=== PATIENT | female | born 1990 | race Caucasian/White ===

== ENCOUNTER 2020-11-04 06:45 | Inpatient (IN) | payer BC ==
[2020-11-04] VITALS (39 sets, daily range): BP systolic 120–166; BP diastolic 58–102; PULSE 70–144; TEMP 97.8–98.4
[~2020-11-04] VITALS: Ht 167.6 cm; Wt 86.4 kg
--- NOTE | 2020-11-04 06:45 | NUR ---
Pt arrives on unit ambulatory wtih spouse. States contractions that began at 0400 that are rated 8/10 for pain. Changed into clean gown. EFM and toco applied. Admission assessment completed. SVE per this RN 4-5//-[address] with scant bloody show[address] Dr[address] Torres notified. See physician notification. Pt updated on POC. Oriented to room. IV started in LF. Labs drawn. LR infusing. Consents signed. Bed locked in low position. Call light within reach. Pt requests epidural. Tatum Busby CRNA notified.
[2020-11-04 07:20] LABS: BASO % 0.3 % (0.0-2.0); EOS # 0.1 (0.0-0.7); EOS % 0.7 % (0-4.0); GRAN # 8.4 (1.4-6.5); GRAN % 72.8 % (42.2-75.2); HEMATOCRIT 39.3 % (37.0-47.0); HEMOGLOBIN 12.9 g/dl (12.5-16.0); LYMPH # 2.2 (1.2-3.4); MEAN CELL VOLUME 93 fl (80.0-100.0); MEAN CORPUSCULAR HEMOGLOBIN 30 pg (27.0-31.0); MEAN CORPUSCULAR HGB CONC 33 g/dl (33.0-37.0); MEAN PLATELET VOLUME 10.2 fl (7.4-10.4); MONO # 0.7 (0.1-0.6); MONO % 6.3 % (1.7-9.3); PLATELET COUNT 253 K/mm3 (130-400); RED BLOOD COUNT 4.24 M/mm3 (4.10-5.30); REDCELL DISTRIBUTION WIDTH-CV 14.8 % (11.5-14.5)
--- NOTE | 2020-11-04 07:43 | NUR ---
Pt sitting upright for epidural placement. Difficulty tracing FHR due to maternal position. RN at bedside adjusting monitors. FHR audible.
[2020-11-04] MEDS ORDERED: SYNTHROID0.05 MG/TA PO (07:59)
--- NOTE | 2020-11-04 08:10 | NUR ---
0810-Recieved bedside shift report from KADI Kelley. Patient RL positioning trying to help epidural cover breakthrough pain in right abdomen. Patient attempts to press TEAMCENTER CONSULTANT and epidural is off, LIANNA Sol notified and to room.
--- NOTE | 2020-11-04 08:20 | NUR ---
Roles at bedside. Reviews FHR monitor and maternal BP. Discusses plan of care with patient. Instructed this RN to monitor next couple of BP since additional dosing of epdirual and see if they come down from 150's/90-100's and update if persisiting. Patient repositioned LL and adjusted EFM.
--- NOTE | 2020-11-04 09:55 | NUR ---
0955- Roles to patient room. Reviews FHR monitor and strip. Patient reports "some pressure with contractions." SVE by /-1, AROM 0957 clear fluid. Repostioned WR with peanut ball.
--- NOTE | 2020-11-04 11:10 | NUR ---
1110-SVE by this RN . Patient feeling right sided pain despite pushing FLAT SURFACER JEWEL button. LIANNA Sol to patient room for additional epidural dose, see anesthesia record. Repositioned WR. 1135-Patient begins pusing with RN, moves vertex well. 1150- Roles to patient room. Evaluates pushing efforts. Encouarges patient to continue with pushing. MD remains on unit at labor desk.
--- NOTE | 2020-11-04 12:45 | NUR ---
Roles to patient room to evaluate pushing effots. RN pushes with patient as MD encoarges and evaluates. No new orders. MD remains on unit at labor desk.
--- NOTE | 2020-11-04 13:15 | NUR ---
1315- Roles begins pushing with patient. Patient moves vertex.
--- NOTE | 2020-11-04 14:00 | NUR ---
1400-Straight Cath per MD, 50ml dark yellow urine.
--- NOTE | 2020-11-04 14:15 | NUR ---
1415-MD Reviews pushing efforts and delivery options with patient and spouse. Review usage of vacuum assistance. Patient agrees to delviery with assistance if MD reccomends. MD instructs patient to push with a few more contractions and then will re-evaluate.
--- NOTE | 2020-11-04 14:27 | NUR ---
1427-Vacuum placed in vagina by Dr. Torres. MD applies pressure on Vacuum to yellow rage of mushroom vacuum. 1430-Patient begins mendel, MD increases pressure to green range. Patient pushes as MD guides head. Patient moves vertex well. MD releases pressure of vacuum as head delivers. Patient continues to push for shoulders and spontaneous delivery of body follows. Viable female to mothers abdoemen. Care of assumed by KADI Dee from nursery. Apgars 01/06//. Cord clamped x2 by and cut by FOB. 1434-Spontaneous delviery of intact placenta by . Pitocin bolus started. Fundal massage firm. Lochia WNL. EBL 350ml. Second degree and L vaginal sidewall repair by Dr. Torres. Sudha care provided and updated on plan of care and safety.
--- NOTE | 2020-11-04 18:36 | NUR ---
1836-Patient up to standing with steady stance, feels a little 'uneasy' assisted to wheelchair with standby. Taken to bathroom and easily voids 300ml clear yellow urine. Ice and prince care provided. Taken to room 208 with KADI Bruce report given. Oriented to room and updated on safety and plan of care.
[2020-11-05 03:08] VITALS: BP 131/77; PULSE 81; TEMP 98.1
[2020-11-05 06:45] VITALS: BP 140/90; PULSE 104; TEMP 98
[2020-11-05] MEDS ORDERED: IBU600 MG PO (09:36)
--- NOTE | 2020-11-05 11:17 | NUR ---
Initial visit; Parents thanked Industrial Engineering Manager for offering congratulations and God's blessings for the of their daughter. Industrial Engineering Manager thanked family for choosing [facility].
[2020-11-05 12:30] VITALS: BP 140/96; PULSE 90; TEMP 98
[2020-11-05 16:14] VITALS: BP 131/69; PULSE 82; TEMP 98
[2020-11-05 20:41] VITALS: BP 136/86; PULSE 77; TEMP 98.2
[2020-11-06 07:30] VITALS: BP 137/95; PULSE 83; TEMP 98.6
== END 2020-11-06 11:05 | disposition home or self-care (01) | DRG 807 ==
LOC: LDR → LDRO 06:45 → LDR 07:00 → LDRO 07:02 → OB 19:00
PROVIDERS: Obstetrics & Gynecology; ADMIT Family Medicine
PROC: 10D07Z6 Extraction of Products of Conception, Vacuum, Via Natural or Artificial Opening (ICD-10-PCS; principal; 2020-11-04)
PROC: 0KQM0ZZ Repair Perineum Muscle, Open Approach (ICD-10-PCS; 2020-11-04)
DX: O99.284 Endocrine, nutritional and metabolic diseases complicating childbirth (principal); Z37.0 Single live birth; E03.9 Hypothyroidism, unspecified; O75.81 Maternal exhaustion complicating labor and delivery; O70.1 Second degree perineal laceration during delivery; Z3A.39 39 weeks gestation of pregnancy
CPT/HCPCS: J2405; J2590; J2795; J7120

== ENCOUNTER 2023-11-23 05:07 | Inpatient (IN) | payer BC ==
[~2023-11-23] VITALS: Ht 167.6 cm; Wt 78.6 kg
[~2023-11-23 05:07] MED LIST: IBU600 MG PO; SYNTHROID0.05 MG/TA PO
[2023-11-24] VITALS (30 sets, daily range): BP systolic 104–138; BP diastolic 57–87; PULSE 16–106; TEMP 97.6–97.9
--- NOTE | 2023-11-24 06:20 | NUR ---
PT AMBULATORY TO UNIT WITH SPOUSE. REPORTS OCCASIONAL CTX, NO LOF, NO VAGINAL BLEEDING, POSITIVE MOVEMENT. ANXIOUS ABOUT INDUCTION. DISCUSSED PROCESS AND INFORMED PT I WILL EXPLAIN EVERYTHING THINGS CHANGE. PT COMFORTABLE. WILL FOLLOW POC.
[2023-11-24] MEDS ORDERED: LR & Oxytocin 500 ML IV SCH (06:45)
[2023-11-24] MEDS ORDERED: LR 1,000 ML IV SCH (06:45)
[2023-11-24] MEDS ORDERED: PRENATAL TABLET PO (06:58)
[2023-11-24] MEDS ORDERED: ZYRTEC ALLERGY10 MG PO (06:58)
[2023-11-24] MEDS ORDERED: COLACE 100100 MG/CAP PO (06:59)
[2023-11-24] MEDS ORDERED: FOLIC ACID0.4 MG PO (06:59)
[2023-11-24 07:21] LABS: BASO % 0.2 % (0.0-2.0); EOS # 0.2 K/mm3 (0.0-0.7); EOS % 1.7 % (0.0-4.0); GRAN # 6.4 K/mm3 (1.4-6.5); GRAN % 68.8 % (42.2-75.2); HEMATOCRIT 41.2 % (37.0-47.0); HEMOGLOBIN 13.8 g/dl (12.5-16.0); LYMPH # 1.9 K/mm3 (1.2-3.4); LYMPH % 20.6 % (20.0-51.0); MEAN CELL VOLUME 95 fl (80.0-100.0); MEAN CORPUSCULAR HEMOGLOBIN 32 pg (27-31); MEAN CORPUSCULAR HGB CONC 34 g/dl (33.0-37.0); MEAN PLATELET VOLUME 10.4 fl (7.4-10.4); MONO # 0.8 K/mm3 (0.1-0.6); MONO % 8.1 % (1.7-9.3); PLATELET COUNT 188 K/mm3 (130-400); RED BLOOD COUNT 4.35 M/mm3 (4.10-5.30); REDCELL DISTRIBUTION WIDTH-CV 13.3 % (11.5-14.5)
[2023-11-24] MEDS ORDERED: ROPivacaine PF 0.2% 200 ML IV ONE (08:50)
--- NOTE | 2023-11-24 08:53 | NUR ---
0853 LIANNA RITTER AT BEDSIDE FOR EPIDURAL PLACEMENT. PT SITTING UPRIGHT ON EDGE OF BED, PULSE OX IN PLACE, LR BOLUS INFUSING PER PROTOCOL. VS STABLE, DIFFICULTY TRACING EFM DUE TO MATERNAL POSITION. 0857 SINGLE SHOT ADMINISTERED PER INDUSTRIAL CONTROLS TECHNICIAN. PT TOLERATED WELL. VS STABLE. 0900 PT RETURNED TO WL POSITION. VS STABLE, EFM CAT 1.
[2023-11-24] MEDS ORDERED: diphenhydrAMINE 50 MG/ML 1 ML VIAL IV PRN (09:30)
[2023-11-24] MEDS ORDERED: diphenhydrAMINE 25 MG CAP PO PRN (09:30)
[2023-11-24] MEDS ORDERED: Naloxone 0.4 MG/ML VIAL IV PRN ×2 (09:30→13:30)
[2023-11-24] MEDS ORDERED: Ondansetron 4 MG/2 ML VIAL IV PRN (09:30)
[2023-11-24] MEDS ORDERED: ePHEDrine 50 MG/10 ML VIAL IV PRN (09:30)
--- NOTE | 2023-11-24 09:50 | NUR ---
LIANNA RITTER AT BEDSIDE TO ASSESS PT EPIDURAL. PT NOT COMFORTABLE ON RIGHT SIDE, BOLUSED AND CATHETER PULLED BACK WITH NO CHANGE IN PAIN LEVEL. PT AGREES TO REPLACE EPIDURAL. 0953 SINGLE SHOT ADMINISTERED PER LIANNA RITTER. PT TOLERATED WELL, RETURNED TO WR POSITION. EFM CAT 1. VS STABLE.
--- NOTE | 2023-11-24 13:00 | NUR ---
PT SVE COMPLETE AT 1230. [place] REMOVED, PRACTICE PUSH DONE, DR. LUU NOTIFIED. STOPPED PUSHING AT THIS TIME. ROOM SET FOR DELIVERY, CHARGE NURSE AND NURSERY NOTIFIED. 1248 BEGAN PUSHING WITH PT. GOOD MATERNAL EFFORT. 1300 OF VIABLE MALE PER . INFANT PLACED ON MATERNAL ABDOMEN AND CARE ASSUMED BY TONG, RN. DR. LUU BEGAN REPAIRING LABIAL LACERATION. [address] LUU. PITOCIN BOLUS INFUSING PER PROTOCOL. LOCHIA WNL, FUNDUS FIRM AT U, VS STABLE. ROOM PUT BACK TOGETHER AFTER SECOND DEGREE LACERATION REPAIR. PT COMFORTABLE IN BED.
[2023-11-24] MEDS ORDERED: Prenatal Vitamins/Iron/FA TAB PO SCH (13:17)
[2023-11-24] MEDS ORDERED: Measles/Mumps/Rubella Virus Vaccine Live w Diluent 0.5 ML VIAL SQ SCH (13:30)
[2023-11-24] MEDS ORDERED: Ibuprofen 800 MG TAB PO SCH (13:30)
[2023-11-24] MEDS ORDERED: Magnes Hydrox (MOM) 80 MG/ML 30 ML CUP PO PRN (13:30)
[2023-11-24] MEDS ORDERED: Mag/Al Hydrox/Simeth Susp 30 ML CUP PO PRN (13:30)
[2023-11-24] MEDS ORDERED: Witch Hazel 50% Pads Bulk TUB TP PRN (13:30)
[2023-11-24] MEDS ORDERED: oxyCODONE 5 MG TAB PO PRN (13:30)
[2023-11-24] MEDS ORDERED: Loratadine 10 MG TAB PO PRN (13:30)
[2023-11-24] MEDS ORDERED: Acetaminophen 500 MG TAB PO SCH (13:30)
[2023-11-24] MEDS ORDERED: Phenylephrine/Mineral Oil/Petrolatum 57 GM TUBE RC PRN (13:30)
--- NOTE | 2023-11-24 15:45 | NUR ---
USED ADITYA STEADY TO TRANSFER PT TO BATHROOM. PT ABLE TO VOID BUT MISSED COLLECTION HAT. NEW GOWN, PAD, AND PANTIES PLACED, USED ADITYA STEADY TO TRANSFER TO ROOM. PT TOLERATED WELL, COMFORTABLE IN BED.
[2023-11-24] MEDS ORDERED: Sennosides/Docusate 8.6-50 MG TAB PO SCH (17:00)
[2023-11-24] MEDS ORDERED: traZODone 50 MG TAB PO PRN (21:00)
[2023-11-25 00:45] VITALS: BP 109/63; PULSE 71; TEMP 97.9
[2023-11-25 04:20] VITALS: BP 109/71; PULSE 71; TEMP 97.4
[2023-11-25 07:00] VITALS: BP 119/84; PULSE 71; TEMP 98.4
[2023-11-25] MEDS ORDERED: Cetirizine 10 MG TAB PO SCH (09:00)
--- NOTE | 2023-11-25 09:17 | NUR ---
Initial visit; Patient thanked Software Quality Test Engineer for offering congratulations and God's blessings for the for her son. Software Quality Test Engineer thanked mom for choosing [facility] and was pleased to hear her time here has been very good.
[2023-11-25] MEDS ORDERED: MOTRIN 800800 MG/TAB PO (11:22)
== END 2023-11-25 15:25 | disposition home or self-care (01) | DRG 807 ==
LOC: OB 05:07 → LDR 11-24 06:14 → OB 11-24 11:01
PROVIDERS: ADMIT Obstetrics & Gynecology
PROC: 10E0XZZ Delivery of Products of Conception, External Approach (ICD-10-PCS; principal; 2023-11-24)
PROC: 0KQM0ZZ Repair Perineum Muscle, Open Approach (ICD-10-PCS; 2023-11-24)
DX: O24.420 Gestational diabetes mellitus in childbirth, diet controlled (principal); Z37.0 Single live birth; Z3A.39 39 weeks gestation of pregnancy; O99.284 Endocrine, nutritional and metabolic diseases complicating childbirth; E03.9 Hypothyroidism, unspecified; O70.1 Second degree perineal laceration during delivery
CPT/HCPCS: J2590; J2795; J7120